=== PATIENT | female | born 1975 | race African-American/Black ===

== ENCOUNTER 2025-05-17 07:14 | Emergency (ER) | payer MEDICAID ==
[~2025-05-17] VITALS: Ht 154.9 cm; Wt 100.0 kg
[2025-05-17 07:18] VITALS: O2SAT 100
[2025-05-17] MEDS: SODIUM CHLORIDE 0.9% 1,000 ML IV ONE ×2 (08:12→09:35)
[2025-05-17 08:23] LABS: BASOPHILS % 0.8 % (0.0-2.0); EOSINOPHILS % 0.1 % (0.0-5.0); HEMATOCRIT. 42.6 % (36.0-48.0); HEMOGLOBIN. 13.6 g/dL (12.0-16.0); LYMPHOCYTES % 17.0 % (20.0-50.0); MEAN PLATELET VOLUME 9.6 fl (7.4-10.4); MONOCYTES % 6.6 % (2.0-8.0); NEUTROPHILS % 75.5 % (40.0-76.0); PLATELET 354 x1000/uL (130-400); RED BLOOD CELL COUNT 4.88 mill/uL (4.2-5.4); RED CELL DISTRIBUTION WIDTH 12.8 % (11.6-14.6)
[2025-05-17 08:40] LABS: CREATININE 1.3 mg/dL (0.6-1.0); UREA NITROGEN BLOOD 18.0 mg/dL (9-23)
[2025-05-17] MEDS: INSULIN REGULAR (HUMULIN R) 1000UNITS/10ML VIAL IV ONE (09:36)
[2025-05-17 10:53] VITALS: BP 126/86; PULSE 83; RESP 18; TEMP 36.8; O2SAT 99
== END 2025-05-17 11:10 | disposition home or self-care (01) ==
LOC: ER 07:14
DX: E11.65 Type 2 diabetes mellitus with hyperglycemia (principal); I10 Essential (primary) hypertension; I49.3 Ventricular premature depolarization; M06.9 Rheumatoid arthritis, unspecified
CPT/HCPCS: 99284; 96374; 96361; 80048; 82962; 85025; 36415; 93005; J7030; J1815